=== PATIENT | male | born 1945 | race Two or more races ===

== ENCOUNTER 2017-04-14 07:30 | Inpatient (IN) | payer OTHER ==
[~2017-04-14] VITALS: Ht 177.8 cm; Wt 83.0 kg
[~2017-04-14 07:30] MED LIST: AMBIEN10 MG PO; AVAPRO150 MG PO; AVAPRO75 MG; CLINDAMYCIN HC300 MG; CULTURELLE CAP1 EAC1; CULTURELLE CAP1 EAC1 PO; DICLOFENAC POTA50 MG; DOK100 MG; INTEGRA F CAPS1 EACH PO; IRON18 MG; LEVAQUIN750 MG; LIPITOR20 MG PO; NABUMETONE500 MG PO; NEURONTIN300 MG; NEURONTIN300 MG PO; PERCOCET 5/3251 TAB PO; PRILOSEC10 MG; PYRIDOXINE HCL100 M1 PO; SYMBICORT; TRAM1TAB98 PO; TRAMADOL HCL50 MG; TRICOR145 MG PO; VITAMIN B-121000 MC2 SL; [UNRECOGNIZED DRUG - OTHER] PO
[2017-04-14] MEDS ORDERED: FENOFIBRATE145 MG PO (08:54)
[2017-04-14] MEDS ORDERED: [UNRECOGNIZED DRUG - OTHER] PO (08:55)
[2017-04-14] MEDS ORDERED: NORFLEX PO (08:56)
== END 2017-04-24 14:50 | DRG 470 ==
LOC: O/R 04-21 06:22 → SURG 04-21 06:22 → SURH 04-21 07:00 → SURG 04-21 13:55
PROVIDERS: Orthopaedic Surgery
PROC: 3E0F7GC Introduction of Other Therapeutic Substance into Respiratory Tract, Via Natural or Artificial Opening (ICD-10-PCS; 2017-04-21)
PROC: 0SRC0J9 Replacement of Right Knee Joint with Synthetic Substitute, Cemented, Open Approach (ICD-10-PCS; principal; 2017-04-21 07:00)
DX: M17.11 Unilateral primary osteoarthritis, right knee (principal); D62 Acute posthemorrhagic anemia; I11.9 Hypertensive heart disease without heart failure; I35.1 Nonrheumatic aortic (valve) insufficiency; M00.861 Arthritis due to other bacteria, right knee; J45.20 Mild intermittent asthma, uncomplicated; E78.4 Other hyperlipidemia

== ENCOUNTER 2019-08-04 12:27 | Outpatient (CLI) | payer OTHER ==
[~2019-08-04 12:27] MED LIST changes: +FENOFIBRATE145 MG PO; +NORFLEX PO; +[UNRECOGNIZED DRUG - OTHER] PO
== END 2019-08-04 14:13 | disposition home or self-care (01) ==
LOC: RAD 12:27
DX: M79.641 Pain in right hand (principal); M79.642 Pain in left hand; M25.511 Pain in right shoulder